=== PATIENT | male | born 1980 | race Caucasian/White ===

== ENCOUNTER 2021-03-13 03:42 | Emergency (ER) | payer SELFPAY ==
[~2021-03-13] VITALS: Ht 180.3 cm; Wt 68.1 kg
[2021-03-13] MEDS ORDERED: DEXAMETHASONE SOD PHOS 4 MG/ML VIAL IVP ONE (05:00)
[2021-03-13] MEDS ORDERED: diphenhydrAMINE HCL 25 MG CAPSULE PO ONE (05:00)
[2021-03-13] MEDS ORDERED: PROCHLORPERAZINE 10 MG/2 ML VIAL. IV ONE (05:00)
[2021-03-13] MEDS ORDERED: IV NORMAL SALINE 1000ML BAG 1,000 ML IV SCH (05:00)
--- NOTE | 2021-03-13 05:03 | RAD ---
CT HEAD INDICATION: Reason: new onset headache / Spl. Instructions: / History: COMPARISON: 06/01/2008 Exposure: One or more of the following individualized dose reduction techniques were utilized for thi s examination: 1. Automated exposure control 2. Adjustment of the mA and/or kV according to patient size 3. Use of iterative reconstruction technique TECHNIQUE: 5 mm contiguous axial images were obtained from the skull base to the vertex in both bone and soft tissue algorithm. FINDINGS: No abnormal attenuation within the brain parenchyma. No evidence of acute intracranial hemorrhage. No extra-axial fluid collections. No mass effect or midline shift. Ventricular size is appropriate. Basal cisterns are patent. No fractures identified.Smallwood-white differentiation is preserved.Globes and orbits are within normal l imits. Paranasal sinuses and mastoid air cells are clear. IMPRESSION: Unremarkable CT examination of the head without contrast, as above. Specifically, no evidence of an acute intracranial abnormality. Electronically signed by: Yosi Harmon MD (03/13/2021 5:00 AM) [id number]
--- NOTE | 2021-03-13 05:25 | ED.ADGEN ---
Past Medical History Past Surgical History: No Surgical History Smoking Status: Current Every Day Smoker Alcohol Use: None General Adult EDM: Chief Complaint: HEADACHE HPI: HPI: Patient is a 40-year-old previously healthy male who presents to the emergency room complaining of headache with associated photophobia and low back pain that started around 4:00 yesterday afternoon. He states he was watching TV when it started. He states that it slowly came on and progressively gotten worse. He did not try to take anything for his headache at home. Patient does admit to using methamphetamines. He denies any kind of fevers, chills, sweats, numbness, weakness. He has not had any cough or congestion. He denies any kind of trauma. Review of Systems: Review of Systems: Complete ROS is negative unless otherwise documented in HPI Current Medications: Current Medications Medications (Trade) Dose Ordered Sig/Marc Start Time Stop Time Status Last Admin Dose Admin Dexamethasone Sodium Phosphate (Decadron) 10 mg 1X ONCE 03/13/21 05:00 03/13/21 05:01 DC 03/13/21 05:07 10 MG Diphenhydramine HCl (Benadryl) 25 mg 1X ONCE 03/13/21 05:00 03/13/21 05:01 DC 03/13/21 05:07 25 MG Ketorolac Tromethamine (Toradol 30mg Vial) 30 mg 1X ONCE 03/13/21 06:00 03/13/21 06:01 DC 03/13/21 05:35 30 MG Methocarbamol (Robaxin) 750 mg 1X ONCE 03/13/21 06:00 03/13/21 06:01 DC 03/13/21 05:36 750 MG Prochlorperazine Edisylate (Compazine) 10 mg 1X ONCE 03/13/21 05:00 03/13/21 05:01 DC 03/13/21 05:07 10 MG Sodium Chloride 1,000 ml @ 30 mls/hr Q24H 03/13/21 05:00 03/13/21 07:33 DC 03/13/21 05:07 30 MLS/HR Allergies: Allergies: Allergies Coded Allergies Type Severity Reaction Last Updated Verified No Known Drug Allergies 03/13/21 No Physical Exam: PE: General: Awake, alert, mild distress HEENT: Atraumatic, EOMI, PERRL, airway patent, moist oral mucosa, photophobia Neck: Supple, trachea midline Respiratory: CTA bilaterally, normal effort, no wheezing/crackles CV: RRR, no murmur, cap refill <2 GI: Soft, nondistended, nontender, no masses MSK: No obvious deformities Skin: Warm, dry, intact Neuro: A&O x3, speech NL, 5/5 strength in BUE/BLE distally and proximally, CN 2- 12 intact, cerebellar testing normal Psych: Normal affect, normal mood, not suicidal or homicidal Current Patient Data: Labs: Laboratory Tests Test 03/13/21 05:10 03/13/21 07:19 Sodium Level 138 mmol/L (136-145) Potassium Level 3.7 mmol/L (3.5-5.1) Chloride Level 102 mmol/L (98-107) Carbon Dioxide Level 31 mmol/L (21-32) Anion Gap 5 (6-14) L Blood Urea Nitrogen 13 mg/dL (8-26) Creatinine 1.0 mg/dL (0.7-1.3) Estimated GFR (Cockcroft-Gault) 81.9 BUN/Creatinine Ratio 13 (6-20) Glucose Level 111 mg/dL (70-99) H Calcium Level 8.7 mg/dL (8.5-10.1) Magnesium Level 2.0 mg/dL (1.8-2.4) Total Bilirubin 0.3 mg/dL (0.2-1.0) Aspartate Amino Transferase (AST) 91 U/L (15-37) H Alanine Aminotransferase (ALT) 240 U/L (16-63) H Alkaline Phosphatase 107 U/L (46-116) Total Protein 7.8 g/dL (6.4-8.2) Albumin 3.6 g/dL (3.4-5.0) Albumin/Globulin Ratio 0.9 (1.0-1.7) L White Blood Count 10.4 x10^3/uL (4.0-11.0) Red Blood Count 4.93 x10^6/uL (4.30-5.70) Hemoglobin 14.6 g/dL (13.0-17.5) Hematocrit 43.6 % (39.0-53.0) Mean Corpuscular Volume 88 fL (79-100) Mean Corpuscular Hemoglobin 30 pg (25-35) Mean Corpuscular Hemoglobin Concent 34 g/dL (31-37) Red Cell Distribution Width 13.1 % (11.5-14.5) Platelet Count 192 x10^3/uL (140-400) Neutrophils (%) (Auto) 87 % (31-73) H Lymphocytes (%) (Auto) 5 % (24-48) L Monocytes (%) (Auto) 6 % (0-9) Eosinophils (%) (Auto) 1 % (0-3) Basophils (%) (Auto) 1 % (0-3) Neutrophils # (Auto) 9.0 x10^3/uL (1.8-7.7) H Lymphocytes # (Auto) 0.5 x10^3/uL (1.0-4.8) L Monocytes # (Auto) 0.6 x10^3/uL (0.0-1.1) Eosinophils # (Auto) 0.1 x10^3/uL (0.0-0.7) Basophils # (Auto) 0.1 x10^3/uL (0.0-0.2) Platelet Estimate Pending Laboratory Tests 03/13/21 07:19 Laboratory Tests 03/13/21 05:10 Vital Signs: Vital Signs Date Time Temp Pulse Resp B/P (MAP) Pulse Ox O2 Delivery O2 Flow Rate FiO2 03/13/21 06:59 86 18 112/69 (83) 100 Room Air 03/13/21 03:48 98.5 98.5 EKG: EKG: [] Heart Score: C/O Chest Pain: N/A Risk Factors: Risk Factors: DM, Current or recent (<one month) smoker, HTN, HLP, family history of CAD, obesity. Risk Scores: Score 0 - 3: 2.5% MACE over next 6 weeks - Discharge Home Score 4 - 6: 20.3% MACE over next 6 weeks - Admit for Clinical Observation Score 7 - 10: 72.7% MACE over next 6 weeks - Early Invasive Strategies Radiology/Procedures: Radiology/Procedures: [] Impression: [facility] [address] [place], [place] [id number] IMAGING REPORT Signed PATIENT: BRI LIVE LACCOUNT: [id number] : 1980 LOCATION: ER AGE: 40 SEX: M EXAM STATUS: REG ER ORD. PHYSICIAN: MELANY MONDRAGON MD REASON: new onset headache PROCEDURE: CT HEAD WO CONTRAST CT HEAD INDICATION: Reason: new onset headache / Spl. Instructions: / History: COMPARISON: 06/01/2008 Exposure: One or more of the following individualized dose reduction techniques were utilized for this examination: 1. Automated exposure control 2. Adjustment of the mA and/or kV according to patient size 3. Use of iterative re construction technique TECHNIQUE: 5 mm contiguous axial images were obtained from the skull base to the vertex in both bone and soft tissue algorithm. FINDINGS: No abnormal attenuation within the brain parenchyma. No evidence of acute intracranial hemorrhage. No extra-axial fluid collectio ns. No mass effect or midline shift. Ventricular size is appropriate. Basal cisterns are patent. No fractures identified.Smallwood-white differentiation is preserved.Globes and orbits are within normal limits. Paranasal sinuses and mastoid air cells are clear. IMPRESSION: Unremarkable CT examination of the head without contrast, as above. Specifically, no evidence of an acute intracranial abnormality. Electronically signed by: Yosi Harmon MD (03/13/2021 5:00 AM) [id number] DICTATED and SIGNED BY: YOSI HARMON MD DATE: 03/13/21 [id number] 0 Course & Med Decision Making: Course & Med Decision Making Pertinent Labs and Imaging studies reviewed. (See chart for details) Patient is a 40-year-old male who presents to the emergency room with headache and lower back pain. Patient did not have sudden onset of headache that would be suggestive of a subarachnoid hemorrhage. He does not have any fever or neck stiffness that would be suggestive of an infectious disease. CT head was done to rule out an intracranial hemorrhage or mass and was normal. Lab work was also done to help evaluate the cause of patient's symptoms. It is possible this could be a viral syndrome. Patient is requesting pain medication. He was given a migraine cocktail. Upon evaluation of the patient, he is sleeping resting comfortably. He states his headache is resolved. I advised that he not use methamphetamines going forward. Additionally the patient denies any history of neurological symptoms related to his headache. He did communicate to me that this is not the worst headache of his life. He is nontoxic-appearing and neurologically intact. He is stable for discharge. Laure Disclaimer: Laure Disclaimer: This electronic medical record was generated, in whole or in part, using a voice recognition dictation system. Departure Departure Impression: Primary Impression: Headache Additional Impressions: Back pain Methamphetamine use LFT elevation Disposition: HOME / SELF CARE / HOMELESS Condition: IMPROVED Referrals: NO PCP (PCP) Patient Instructions: Back Pain in , General Headache Without Cause, Methamphetamine Abuse, Complications Scripts Butalb/Acetaminophen/Caffeine ([id number]) 1 Each Capsule 1 EACH PO Q6HRS for 3 Days, #12 CAP Prov: IZZY MICHAEL DO 03/13/21 Cyclobenzaprine Hcl (CYCLOBENZAPRINE HCL) 5 Mg Tablet 1 TAB PO TID, #15 TAB Prov: IZZY MICHAEL DO 03/13/21 Problem Qualifiers MELANY MONDRAGON MD Mar 13, 2021 05:24 IZZY MICHAEL DO Mar 13, 2021 07:07
[2021-03-13 05:50] LABS: CALCIUM 8.7 mg/dL (8.5-10.1); GFR 81.9; POTASSIUM 3.7 mmol/L (3.5-5.1)
[2021-03-13 05:56] LABS: ALBUMIN 3.6 g/dL (3.4-5.0); ALBUMIN/GLOBULIN RATIO 0.9 (1.0-1.7); TOTAL BILIRUBIN 0.3 mg/dL (0.2-1.0); TOTAL PROTEIN 7.8 g/dL (6.4-8.2)
[2021-03-13] MEDS ORDERED: KETOROLAC 30 MG/ML VIAL. IVP ONE (06:00)
[2021-03-13] MEDS ORDERED: METHOCARBAMOL 750 MG TABLET PO ONE (06:00)
[2021-03-13 06:59] VITALS: BP 112/69
[2021-03-13] MEDS ORDERED: BUTA1CAP57 PO (07:13)
[2021-03-13] MEDS ORDERED: CYCL5TAB PO (07:13)
[2021-03-13 07:25] LABS: BASO # 0.1 x10^3/uL (0.0-0.2); BASO % 1 % (0-3); EOS # 0.1 x10^3/uL (0.0-0.7); EOS % 1 % (0-3); HEMATOCRIT 43.6 % (39.0-53.0); HEMOGLOBIN 14.6 g/dL (13.0-17.5); LYMPH # 0.5 x10^3/uL (1.0-4.8); LYMPH % 5 % (24-48); MEAN CORPUSCULAR HEMOGLOBIN 30 pg (25-35); MEAN CORPUSCULAR HGB CONC 34 g/dL (31-37); MEAN CORPUSCULAR VOLUME 88 fL (79-100); MONO # 0.6 x10^3/uL (0.0-1.1); MONO % 6 % (0-9); NEUT % 87 % (31-73); PLATELET COUNT 192 x10^3/uL (140-400); RED BLOOD COUNT 4.93 x10^6/uL (4.30-5.70); RED CELL DISTRIBUTION WIDTH 13.1 % (11.5-14.5); WHITE BLOOD COUNT 10.4 x10^3/uL (4.0-11.0)
[2021-03-13 08:57] LABS: % BANDS 1 % (0-9); % BASOS 1 % (0-3); % EOS 1 % (0-5); % LYMPHS 10 % (24-48); % MONOS 8 % (0-10); % SEGS 79 % (35-66)
[2021-03-13 08:58] LABS: PLT ESTIMATE ADEQUATE (ADEQUATE)
== END 2021-03-13 07:26 | disposition home or self-care (01) ==
LOC: ER 03:42
DX: U07.1 COVID-19 (principal); R51.9 Headache, unspecified; H53.149 Visual discomfort, unspecified; M54.5 Low back pain; F15.90 Other stimulant use, unspecified, uncomplicated; R79.89 Other specified abnormal findings of blood chemistry; F17.200 Nicotine dependence, unspecified, uncomplicated
CPT/HCPCS: 36415; 70450; 80053; 83735; 85007; 85025; 96374; 96375; 99284; J0780; J1100; J1885; J7030; Q0163; U0003; U0005